=== PATIENT | female | born 1970 | race Caucasian/White ===

== ENCOUNTER 2019-05-05 10:49 | Emergency (ER) | payer MEDICAID ==
[~2019-05-05] VITALS: Ht 162.6 cm; Wt 57.0 kg
[2019-05-05] MEDS ORDERED: ASPIRIN 81MG TABLET PO ONE (12:00)
[2019-05-05 12:23] LABS: BASOPHILS % 0.7 % (0.0-2.0); EOSINOPHILS % 12.4 % (0.0-5.0); HEMATOCRIT. 41.8 % (36.0-48.0); HEMOGLOBIN. 14.3 g/dL (12.0-16.0); LYMPHOCYTES % 39.4 % (20.0-50.0); MEAN CORPUSCULAR HEMOGLOBIN 29.6 pg (28.0-32.0); MEAN CORPUSCULAR VOLUME 86.4 fL (81.0-99.0); MEAN PLATELET VOLUME 9.4 fl (7.4-10.4); MONOCYTES % 5.1 % (2.0-8.0); NEUTROPHILS % 42.4 % (40.0-76.0); PLATELET 198 x1000/uL (130-400); RED BLOOD CELL COUNT 4.83 mill/uL (4.2-5.4)
[2019-05-05 12:27] LABS: CHLORIDE 109 mEq/L (98-107)
[2019-05-05 13:30] VITALS: BP 158/82
== END 2019-05-05 13:50 | disposition home or self-care (01) ==
LOC: ER 10:49
DX: R05 Cough (principal); R06.02 Shortness of breath
CPT/HCPCS: 36415; 71045; 83880; 84484; 93005; 99284